=== PATIENT | female | born 1995 | race Caucasian/White ===

== ENCOUNTER 2016-11-17 15:04 | Emergency (ER) | payer OTHER ==
[~2016-11-17] VITALS: Ht 172.7 cm; Wt 95.3 kg
[~2016-11-17 15:04] MED LIST: ACET50TA; IBUP600T26 PO; MOTR200T44 PO; PRENTAB74 PO
[2016-11-17] MEDS ORDERED: NORCO, ANEXSIA 5/325MG TABLET (HYDROcodone/ACETAMINOPHEN) PO ONE (16:00)
[2016-11-17] MEDS ORDERED: ONDANSETRON 4 MG ORAL DISINTEGRATING TAB (S0181) PO ONE (16:00)
[2016-11-17 16:18] LABS: BASO % 0.3 % (0.0-1.0); EOS # 0.1 K/mm3 (0.0-0.50); EOS % 1.5 % (0.0-3.0); LARGE UNSTAINED CELL # 0.1 K/mm3 (0.0-0.4); LARGE UNSTAINED CELL % 1.2 % (0.0-4.0); LYMPH # 1.9 K/mm3 (1.5-6.5); LYMPH % 27.1 % (24.0-44.0); MEAN CORPUSCULAR HEMOGLOBIN 28.8 pg (27.0-33.0); MEAN CORPUSCULAR HGB CONC 32.9 g/dl (32.0-36.5); MEAN CORPUSCULAR VOLUME 87.4 fl (80.0-96.0); MONO # 0.3 K/mm3 (0.0-0.8); MONO % 3.9 % (0.0-5.0); NEUTROPHILS # 4.5 K/mm3 (1.8-7.7); PLATELET COUNT, AUTOMATED 255 k/mm3 (150-450); WHITE BLOOD COUNT 6.7 K/mm3 (4.0-10.0)
--- NOTE | 2016-11-17 16:38 | REP ---
KUB, TWO VIEWS: HISTORY: Left upper quadrant pain. Air is present in the small and large intestine. There are no air fluid levels or dilated loops of intestine. There is no pneumoperitoneum. There is spina bifida occulta of SI. IMPRESSION: Non-specific bowel gas pattern. Signed by Kevyn Way MD 11/17/2016 04:46 P
[2016-11-17 16:57] LABS: ALBUMIN 3.8 GM/DL (3.2-5.2); ALBUMIN/GLOBULIN RATIO 0.97 (1.00-1.93); ALKALINE PHOSPHATASE 93 U/L (45-117); ALT/SGPT 15 U/L (12-78); AMYLASE 70 U/L (25-115); ANION GAP 5 MEQ/L (8-16); AST/SGOT 8 U/L (15-37); BILIRUBIN,DIRECT < 0.1 MG/DL (0.0-0.2); BILIRUBIN,TOTAL 0.2 MG/DL (0.2-1.0); BLOOD UREA NITROGEN 11 MG/DL (7-18); CALCIUM LEVEL 8.6 MG/DL (8.5-10.1); CARBON DIOXIDE LEVEL 28 MEQ/L (21-32); CHLORIDE LEVEL 110 MEQ/L (98-107); CREATININE FOR GFR 0.56 MG/DL (0.55-1.02); GLOMERULAR FILTRATION RATE > 60.0 (>60); GLUCOSE, FASTING 87 MG/DL (70-105); POTASSIUM SERUM 3.9 MEQ/L (3.5-5.1); SODIUM LEVEL 143 MEQ/L (136-145); TOTAL PROTEIN 7.7 GM/DL (6.4-8.2)
[2016-11-17] MEDS ORDERED: CIPR500T89 PO (17:05)
[2016-11-17 17:23] VITALS: BP 107/67
== END 2016-11-17 17:25 | disposition home or self-care (01) ==
LOC: M ED 16:13
DX: N39.0 Urinary tract infection, site not specified (principal)

== ENCOUNTER → 2017-01-10 | Outpatient (REF) | payer OTHER ==
[~2017-01-10] MED LIST changes: +CIPR500T89 PO
[2017-01-10 18:32] LABS: MEAN CORPUSCULAR HEMOGLOBIN 29.7 pg (27.0-33.0); MEAN CORPUSCULAR HGB CONC 33.9 g/dl (32.0-36.5); MEAN CORPUSCULAR VOLUME 87.5 fl (80.0-96.0); RED CELL DISTRIBUTION WIDTH 15.2 % (11.5-14.5); WHITE BLOOD COUNT 6.5 K/mm3 (4.0-10.0)
[2017-01-10 18:45] LABS: HCG, SERUM QUANTITATIVE 72456 MIU/ML
== END ==
LOC: M LAB REF 16:41
PROVIDERS: ATTEND Obstetrics & Gynecology
DX: O36.80X0 Pregnancy with inconclusive fetal viability, not applicable or unspecified (principal)

== ENCOUNTER → 2017-02-10 | Outpatient (REF) | payer OTHER | LOC: M LAB REF 13:10 | PROVIDERS: ATTEND Obstetrics & Gynecology | DX: Z34.91 Encounter for supervision of normal pregnancy, unspecified, first trimester (principal) ==

== ENCOUNTER → 2017-06-02 | Outpatient (CLI) | payer OTHER ==
[~2017-06-02] MED LIST changes: +CIPR-249 PO; -CIPR500T89 PO
[2017-06-02 10:52] LABS: MEAN CORPUSCULAR HEMOGLOBIN 29.7 pg (27.0-33.0); MEAN CORPUSCULAR HGB CONC 32.2 g/dl (32.0-36.5); MEAN CORPUSCULAR VOLUME 92.4 fl (80.0-96.0); RED CELL DISTRIBUTION WIDTH 15.7 % (11.5-14.5); WHITE BLOOD COUNT 9.9 10^3/uL (4.0-10.0)
== END ==
LOC: M LAB 09:17
PROVIDERS: ATTEND Obstetrics & Gynecology
DX: Z34.82 Encounter for supervision of other normal pregnancy, second trimester (principal); Z3A.26 26 weeks gestation of pregnancy

== ENCOUNTER → 2017-07-26 | Outpatient (REF) | payer OTHER, MEDICAID | LOC: M LAB REF 13:29 | PROVIDERS: ATTEND Obstetrics & Gynecology | DX: Z34.83 Encounter for supervision of other normal pregnancy, third trimester (principal) ==

== ENCOUNTER 2017-08-29 12:08 | Inpatient (IN) | payer OTHER, MEDICAID ==
[2017-08-29] MEDS: LACTATED RINGER'S 1000 ML IV (13:19)
[2017-08-29 13:57] LABS: HEMATOCRIT 30.2 % (36.0-47.0); HEMOGLOBIN 9.7 g/dl (12.0-16.0); MEAN CORPUSCULAR HEMOGLOBIN 27.2 pg (27.0-33.0); MEAN CORPUSCULAR HGB CONC 32.1 g/dl (32.0-36.5); MEAN CORPUSCULAR VOLUME 84.8 fl (80.0-96.0); PLATELET COUNT, AUTOMATED 200 10^3/uL (150-450); RED BLOOD COUNT 3.56 10^6/uL (4.00-5.40); RED CELL DISTRIBUTION WIDTH 16.2 % (11.5-14.5); WHITE BLOOD COUNT 8.8 10^3/uL (4.0-10.0)
[2017-08-29] MEDS: OXYTOCIN DRIP 30 UNITS in APPROPRIATE DILUENT 1 EA IV ×2 (14:00→22:51)
[2017-08-29] MEDS: LR 1,000 ML IV ×2 (14:00→21:28)
[2017-08-29 14:16] LABS: AMPHETAMINES URINE REFLEX NEGATIVE (NEGATIVE); BARBITURATES URINE REFLEX NEGATIVE (NEGATIVE); BENZODIAZEPINES URINE REFLEX NEGATIVE (NEGATIVE); CANNABINOIDS URINE REFLEX NEGATIVE (NEGATIVE); COCAINE METABOLITE URINE REFLE NEGATIVE (NEGATIVE); METHADONE URINE REFLEX NEGATIVE (NEGATIVE); OPIATES URINE REFLEX NEGATIVE (NEGATIVE); PHENCYCLIDINE URINE REFLEX NEGATIVE (NEGATIVE)
[2017-08-29] MEDS: PROMETHAZINE INJ 25 MG/ML VIAL (J2550) IV (20:21)
[2017-08-29] MEDS: BUTORPHANOL 2 MG/ML INJ (J0595) IV (20:29)
[2017-08-29] MEDS ORDERED: RHOGAM 300 MCG (1500 IU) INJ (J2790) IM (23:00)
[2017-08-29] MEDS ORDERED: METHYLERGONOVINE MALEATE 0.2 MG TAB PO (23:00)
[2017-08-29] MEDS ORDERED: DIBUCAINE 1% OINTMENT 30GM TOP (23:00)
[2017-08-29] MEDS ORDERED: DOCUSATE SODIUM 100 MG CAP PO (23:00)
[2017-08-29] MEDS ORDERED: ANUSOL HC CREAM 30GM TOP (23:00)
[2017-08-29] MEDS ORDERED: MEASLES,MUMPS,RUBELLA VACCINE INJ (MMR-II) (90707) SC (23:00)
[2017-08-30] MEDS: ACETAMINOPHEN 500 MG TAB PO ×4 (00:35→20:49)
[2017-08-30] MEDS: IBUPROFEN 800 MG TAB PO ×3 (00:38→17:08)
[2017-08-30] MEDS: PRENATAL VITAMINS CHEWABLE TABLET PO (08:54)
[2017-08-31] MEDS: ACETAMINOPHEN 500 MG TAB PO (05:04)
[2017-08-31] MEDS: IBUPROFEN 800 MG TAB PO (05:04)
[2017-08-31] MEDS: PRENATAL VITAMINS CHEWABLE TABLET PO (08:34)
== END 2017-08-31 10:10 | disposition home or self-care (01) | DRG 560 ==
LOC: M LDI 12:08 → M OBS 08-30 00:59
PROVIDERS: Advanced Practice Midwife
PROC: 10E0XZZ Delivery of Products of Conception, External Approach (ICD-10-PCS; principal; 2017-08-29)
PROC: 3E033VJ Introduction of Other Hormone into Peripheral Vein, Percutaneous Approach (ICD-10-PCS; 2017-08-29)
DX: O48.0 Post-term pregnancy (principal); E66.9 Obesity, unspecified; Z37.0 Single live birth; Z3A.40 40 weeks gestation of pregnancy; F17.200 Nicotine dependence, unspecified, uncomplicated; Z88.2 Allergy status to sulfonamides; Z88.6 Allergy status to analgesic agent; O99.214 Obesity complicating childbirth; O99.334 Smoking (tobacco) complicating childbirth

== ENCOUNTER → 2018-04-17 | Outpatient (REF) | payer OTHER ==
[2018-04-17 20:20] LABS: APPEARANCE, URINE CLOUDY (CLEAR); BACTERIA, URINE AUTO 2+ (NEGATIVE); BILIRUBIN, URINE AUTO NEGATIVE (NEGATIVE); BLOOD, URINE BLOOD 3+ (NEGATIVE); COLOR, URINE YELLOW (YELLOW); GLUCOSE, URINE (UA) AUTO NEGATIVE (NEGATIVE); KETONE, URINE AUTO NEGATIVE (NEGATIVE); LEUKOCYTE ESTERASE, URINE AUTO 3+ (NEGATIVE); MUCUS, URINE SMALL (NEGATIVE); NITRITE, URINE AUTO NEGATIVE (NEGATIVE); PROTEIN, URINE AUTO 2+ mg/dL (NEGATIVE); RBC, URINE AUTO TNTC /HPF (0-3); SPECIFIC GRAVITY URINE AUTO 1.023 (1.002-1.035); SQUAMOUS EPITHELIAL CELL UR AU 8 /HPF (0-6); UROBILINOGEN, URINE AUTO 0.2 mg/dL (0.0-2.0); WBC, URINE AUTO TNTC /HPF (0-3)
== END ==
LOC: M LAB REF 17:01
DX: N39.0 Urinary tract infection, site not specified (principal)

== ENCOUNTER → 2018-09-28 | Outpatient (REF) | payer OTHER ==
[~2018-09-28] MED LIST changes: +IBUP-1114 PO; +MAPA500T2 PO; +PRENTAB9 PO; +RANI15TA PO
[2018-09-28 18:09] LABS: HEMOGLOBIN 11.5 g/dl (12.0-15.5); MEAN CORPUSCULAR HEMOGLOBIN 28.9 pg (27.0-33.0); MEAN CORPUSCULAR HGB CONC 32.9 g/dl (32.0-36.5); MEAN CORPUSCULAR VOLUME 87.9 fl (80.0-96.0); PLATELET COUNT, AUTOMATED 257 10^3/uL (150-450); RED BLOOD COUNT 3.98 10^6/uL (4.00-5.40); WHITE BLOOD COUNT 6.3 10^3/uL (4.0-10.0)
[2018-09-29 14:10] LABS: HIV 1&2 SCREEN CENTAUR NEGATIVE (NEGATIVE); RUBELLA IgG QUALITATIVE IMMUNE (IMMUNE)
== END ==
LOC: M LAB REF 16:34
PROVIDERS: ATTEND Obstetrics & Gynecology
DX: Z32.01 Encounter for pregnancy test, result positive (principal); O36.80X0 Pregnancy with inconclusive fetal viability, not applicable or unspecified; Z3A.00 Weeks of gestation of pregnancy not specified

== ENCOUNTER → 2019-02-07 | Outpatient (CLI) | payer OTHER ==
[~2019-02-07] MED LIST changes: -ACET50TA; +MAPA500T17
[2019-02-07 12:27] LABS: HEMATOCRIT 31.7 % (36.0-47.0); HEMOGLOBIN 10.5 g/dl (12.0-15.5); MEAN CORPUSCULAR HEMOGLOBIN 31.6 pg (27.0-33.0); MEAN CORPUSCULAR HGB CONC 33.1 g/dl (32.0-36.5); MEAN CORPUSCULAR VOLUME 95.5 fl (80.0-96.0); PLATELET COUNT, AUTOMATED 148 10^3/uL (150-450); RED BLOOD COUNT 3.32 10^6/uL (4.00-5.40); WHITE BLOOD COUNT 7.8 10^3/uL (4.0-10.0)
== END ==
LOC: M LAB 10:11
PROVIDERS: ATTEND Obstetrics & Gynecology
DX: O30.042 Twin pregnancy, dichorionic/diamniotic, second trimester (principal); Z3A.00 Weeks of gestation of pregnancy not specified

== ENCOUNTER → 2019-03-23 | Outpatient (CLI) | payer OTHER ==
--- NOTE | 2019-03-23 16:56 | REP ---
Clinical: Twin gestation. Abnormal heart rates Comparison: None . Findings: Examination demonstrates diamniotic dichorionic twin gestation. Cervix measures 3.2 cm in length and appears closed. Concordant growth is noted. TWIN A: Twin A identified in cephalic presentation along the maternal right side. Placenta is noted posterior and grade II without evidence for placenta previa or abruption. motion is appreciated. Amniotic fluid volume is normal and the deepest pocket measures 5.2 cm. FHR equals 135 beats per minute. Biophysical profile score: 8/8 Umbilical cord SD ratio: 3.59 ------- TWIN B: Twin B identified in breech presentation along the maternal left side. Placenta is noted posterior and grade II without evidence for placenta previa or abruption. motion is appreciated. Amniotic fluid volume is normal and the deepest pocket measures 3.1 cm. FHR equals 147 beats per minute. Biophysical profile score: 8/8 Umbilical cord SD ratio: 3.11 Impression: Diamniotic dichorionic twin gestation demonstrating normal amniotic fluid volume and biophysical profile scores. Electronically Signed by Sarkis Webb MD 03/23/2019 04:48 P
== END ==
LOC: M RAD 15:08
PROVIDERS: ATTEND Nurse Practitioner Women's Health
DX: O30.043 Twin pregnancy, dichorionic/diamniotic, third trimester (principal); O36.8330 Maternal care for abnormalities of the fetal heart rate or rhythm, third trimester, not applicable or unspecified; Z3A.00 Weeks of gestation of pregnancy not specified

== ENCOUNTER → 2019-03-27 | Outpatient (REF) | payer OTHER | LOC: M LAB REF 13:36 | PROVIDERS: ATTEND Nurse Practitioner Women's Health | DX: O30.043 Twin pregnancy, dichorionic/diamniotic, third trimester (principal); R30.0 Dysuria ==

== ENCOUNTER → 2019-04-05 | Outpatient (REF) | payer OTHER | LOC: M LAB REF 16:22 | PROVIDERS: ATTEND Obstetrics & Gynecology | DX: O09.893 Supervision of other high risk pregnancies, third trimester (principal); Z3A.00 Weeks of gestation of pregnancy not specified ==

== ENCOUNTER 2019-04-27 07:03 | Inpatient (IN) | payer OTHER ==
[2019-04-27] VITALS (7 sets, daily range): BP systolic 102–118; BP diastolic 52–71
[~2019-04-27] VITALS: Ht 172.7 cm; Wt 97.7 kg
[2019-04-27] MEDS ORDERED: LR 1,000 ML IV SCH ×2 (07:45→17:15)
[2019-04-27] MEDS ORDERED: BICITRA 30ML SOLN UDC PO ONE (07:45)
[2019-04-27] MEDS ORDERED: LACTATED RINGER'S 1000 ML IV STA (07:45)
[2019-04-27 08:23] LABS: HEMATOCRIT 35.7 % (36.0-47.0); HEMOGLOBIN 11.9 g/dl (12.0-15.5); MEAN CORPUSCULAR HEMOGLOBIN 30.9 pg (27.0-33.0); MEAN CORPUSCULAR HGB CONC 33.3 g/dl (32.0-36.5); MEAN CORPUSCULAR VOLUME 92.7 fl (80.0-96.0); PLATELET COUNT, AUTOMATED 149 10^3/uL (150-450); RED BLOOD COUNT 3.85 10^6/uL (4.00-5.40); WHITE BLOOD COUNT 8.4 10^3/uL (4.0-10.0)
[2019-04-27] MEDS ORDERED: MORPHINE PRES-FREE INJ 10 MG/10 ML VIAL (J2274) As Ordered ONE (10:25)
[2019-04-27] MEDS ORDERED: OXYTOCIN INJ 10 UNITS/ML VIAL (J2590) As Ordered ONE (10:25)
[2019-04-27] MEDS ORDERED: dexameTHASONE 4 MG/ML 1ML VIAL (J1100) As Ordered ONE (10:25)
[2019-04-27] MEDS ORDERED: PHENYLephrine HCL 500 MCG/5 ML (100MCG/ML) SYRINGE (J2370) As Ordered ONE ×2 (10:25→10:28)
[2019-04-27] MEDS ORDERED: KETOROLAC 60 MG/2 ML VIAL (J1885) As Ordered ONE (10:25)
[2019-04-27] MEDS ORDERED: ONDANSETRON 4MG/2ML VIAL (J2405) As Ordered ONE (10:25)
[2019-04-27] MEDS ORDERED: ePHEDrine SULFATE 25 MG/5 ML(5MG/ML) SYRINGE As Ordered ONE (10:25)
[2019-04-27] MEDS ORDERED: OXYTOCIN DRIP 30 UNITS in APPROPRIATE DILUENT 1 EA IV SCH (11:01)
[2019-04-27 11:02] LABS: CORD GAS ABE A 2.2; CORD GAS ABE V 1.4; CORD GAS HCO3 A 31.6 MEQ/L; CORD GAS HCO3 V 27.8 MEQ/L; CORD GAS O2 SAT A 46.3 %; CORD GAS O2 SAT V 82.1 %; CORD GAS PCO2 A 67.9 mmHg; CORD GAS PCO2 V 49.6 mmHg; CORD GAS PH A 7.285 UNITS; CORD GAS PH V 7.367 UNITS; CORD GAS PO2 A 19.3 mmHg; CORD GAS PO2 V 34.3 mmHg; CORD GAS SBC A 24.9 MEQ/L; CORD GAS SBC V 25.2 MEQ/L; CORD GAS TCO2 A 33.6 MEQ/L; CORD GAS TCO2 V 29.4 MEQ/L
[2019-04-27 11:05] LABS: CORD GAS ABE A 0.2; CORD GAS ABE V 0.4; CORD GAS HCO3 A 28.9 MEQ/L; CORD GAS HCO3 V 26.1 MEQ/L; CORD GAS O2 SAT A 35.6 %; CORD GAS O2 SAT V 81.1 %; CORD GAS PCO2 A 62.3 mmHg; CORD GAS PCO2 V 45.4 mmHg; CORD GAS PH A 7.285 UNITS; CORD GAS PH V 7.377 UNITS; CORD GAS PO2 A 14.5 mmHg; CORD GAS PO2 V 32.9 mmHg; CORD GAS SBC A 22.8 MEQ/L; CORD GAS SBC V 24.3 MEQ/L; CORD GAS TCO2 A 30.9 MEQ/L; CORD GAS TCO2 V 27.5 MEQ/L
[2019-04-27] MEDS ORDERED: RHOGAM 300 MCG (1500 IU) INJ (J2790) IM SCH (11:15)
[2019-04-27] MEDS ORDERED: MOM 30ML SUSPENSION UDC PO PRN (11:15)
[2019-04-27] MEDS ORDERED: MEASLES,MUMPS,RUBELLA VACCINE INJ (MMR-II) (90707) SC SCH (11:15)
[2019-04-27] MEDS ORDERED: ACETAMINOPHEN 650 MG SUPP PR PRN (11:15)
[2019-04-27] MEDS ORDERED: ONDANSETRON 4MG/2ML VIAL (J2405) IV PRN ×2 (11:30→14:00)
[2019-04-27] MEDS ORDERED: NALBUPHINE HCL 10 MG/ML AMP (J2300) IV PRN ×2 (11:30→14:00)
[2019-04-27] MEDS ORDERED: fentaNYL 100 MCG/2 ML INJECTION (J3010) As Ordered ONE (12:03)
[2019-04-27] MEDS: fentaNYL 100 MCG/2 ML INJECTION (J3010) IV PRN ×2 (12:14→12:27)
[2019-04-27] MEDS ORDERED: OXYTOCIN 30 UNITS IN 0.9% NaCl 500ML IV BAG (J2590) As Ordered ONE (12:21)
[2019-04-27] MEDS: PERCOCET 5MG/325MG TAB PO PRN ×3 (13:38→22:09)
[2019-04-27] MEDS: PRENATAL VITAMINS CHEWABLE TABLET PO SCH (13:38)
[2019-04-27] MEDS ORDERED: diphenhydrAMINE INJ 50MG/ML VIAL (J1200) IV PRN (14:00)
[2019-04-27] MEDS ORDERED: NALOXONE INJ 0.4 MG/1 ML VIAL (J2310) IV PRN ×2 (14:00)
[2019-04-27] MEDS ORDERED: METOCLOPRAMIDE INJ 10MG/2ML VIAL (J2765) IV PRN (14:00)
[2019-04-27] MEDS: NICOTINE 21MG/24HR 1 EA TRANSDERMAL TD SCH (20:23)
--- NOTE | 2019-04-27 21:57 | RO ---
DATE OF PROCEDURE: 04/27/2019 Zakiya is a 23-year-old female 5, para 5 4-0-0-4 who has a diamniotic-dichorionic twin gestation at 38-3/7 weeks gestation, vertex breech. Patient is requesting delivery via section. She also wanted tubal ligation. PREOPERATIVE DIAGNOSIS 1. Twin gestation at 38-4/7 weeks gestation, Di-Di. 2. Vertex breech requesting delivery via primary section. 3. Desires permanent tubal sterilization. POSTOPERATIVE DIAGNOSIS 1. Twin gestation at 38-4/7 weeks gestation, Di-Di. 2. Vertex breech requesting delivery via primary section. 3. Desires permanent tubal sterilization. PROCEDURE 1. Primary low transverse section. 2. Bilateral tubal ligation using Filshie clip. SURGEON: Carlton Lozada MD RAND MAKER: ANESTHESIA: Spinal. COMPLICATIONS: None. ESTIMATED BLOOD LOSS: 800 mL. FINDINGS: Live female infant twin A delivered in vertex position. nine and nine. weight 6 pounds 2 ounces. Twin B had an internal cephalic version and delivered vertex. nine and nine. weight 6 pounds 3 ounces. Placenta delivered spontaneously intact. Three-vessel cord. Cord blood and cord gas were sent. Normal-appearing tubes and ovaries. DESCRIPTION OF PROCEDURE After obtaining informed consent, the patient was taken to the operating room where spinal anesthetic was found to be adequate. She was then draped and prepped in usual sterile fashion in the supine position. At this point, a Pfannenstiel incision was made. This was carried down to fascia. Fascia was incised in midline fashion and carried through laterally. Superior aspect of the fascia was then grasped with Roz clamps, tented off and dissected off the rectus muscles sharply. The inferior aspect was dissected off in a similar fashion. Rectus muscles midline fashion. Perineum identified. Peritoneal cavity entered bluntly. Superior and inferior dissection of peritoneum was then done with good visualization of the bladder. At this point a Mobius skin retractor was placed, a low-transverse uterine incision was made. Infant was delivered in atraumatic fashion after rupturing the amniotic sac. Then we then turned our attention to twin B which was found to be with an arm presentation, unable to deliver the baby in that fashion. We then did an internal cephalic version and the twin was then delivered in atraumatic fashion after rupturing the bag. Cord blood and cord gas were sent. Placenta removed manually. Uterus was cleared of all clot and debris and the uterine incision was then repaired in two separate layers of #0 Vicryl sutures. Attention turned to the fallopian tube which was identified. The fimbriated end identified and a Filshie clip was then applied approximately 2 cm away from the cornual area in each tube. Good hemostasis noted. All the instruments were removed. Pelvis copiously irrigated with normal saline and suctioned out. Attention turned to the peritoneum which was closed in a running fashion using #2-0 Vicryl suture. Fascia closed in two separate segment of #0 Vicryl sutures and the skin was closed in a subcuticular fashion using #3-0 Vicryl on a Mark. Steri-Strips placed. The patient tolerated procedure well. She was then transferred to recovery room in stable condition.
[2019-04-27] MEDS: DOCUSATE SODIUM 100 MG CAP PO SCH (22:08)
[2019-04-27] MEDS: IBUPROFEN 800 MG TAB PO SCH (22:09)
[2019-04-28] MEDS: PERCOCET 5MG/325MG TAB PO PRN ×5 (01:53→20:25)
[2019-04-28 02:00] VITALS: BP 108/51
[2019-04-28 06:00] VITALS: BP 108/58
[2019-04-28] MEDS: IBUPROFEN 800 MG TAB PO SCH ×3 (06:08→22:44)
--- NOTE | 2019-04-28 06:23 | IPNPDOC ---
Text Note Date of Service The patient was seen on 04/28/19. NOTE Postop Day 1 s/p primary LTCS; uncomplicated for Di-Di twins S: pain well controlled, lochia and bleeding decreasing, voiding spontaneously, ambulating without assistance, tolerating regular diet. Breast feeding. O: vitals stable Heart: RRR, no murmurs Lungs: CTA bilaterally Abd: Fundus firm @ U-1 Ext: no edema, nontender, negative Mustapha's bilaterally A/P: 23 yo G5 now P6. day 1 s/p primary LTCS. Hemodynamically stable, afebrile, adequate pain control. Recovering well. -Routine postoperative care and advancement. -Anticipate discharge tomorrow or Tuesday VS,Fishbone, I+O VS, Fishbone, I+O Laboratory Tests 04/27/19 08:03 Red Blood Count 3.85 L, Mean Corpuscular Volume 92.7, Mean Corpuscular Hemoglobin 30.9, Mean Corpuscular Hemoglobin Concent 33.3, Red Cell Distribution Width 14.7 H Vital Signs Date Time Temp Pulse Resp B/P (MAP) Pulse Ox O2 Delivery O2 Flow Rate FiO2 04/28/19 06:00 98.5 81 18 108/58 (75 93 I&O- Last 24 Hours up to 6 AM 04/28/19 06:00 Intake Total 1660 ml Output Total 2400 ml Balance -740 ml GME ATTESTATION GME ATTESTATION My faculty preceptor for this patient encounter was physically present during the encounter and was fully available. All aspects of the patient interview, examination, medical decision making process, and medical care plan development were reviewed and approved by the faculty preceptor. The faculty preceptor is aware and concurs with the plan as stated in the body of this note and will attest to such by his/her cosignature. XIMENA WILHELM DO Apr 28, 2019 06:23
[2019-04-28 07:11] LABS: HEMATOCRIT 26.2 % (36.0-47.0); MEAN CORPUSCULAR HEMOGLOBIN 30.2 pg (27.0-33.0); MEAN CORPUSCULAR HGB CONC 32.1 g/dl (32.0-36.5); MEAN CORPUSCULAR VOLUME 94.2 fl (80.0-96.0); PLATELET COUNT, AUTOMATED 152 10^3/uL (150-450); RED BLOOD COUNT 2.78 10^6/uL (4.00-5.40); WHITE BLOOD COUNT 11.7 10^3/uL (4.0-10.0)
[2019-04-28 07:15] LABS: HEMOGLOBIN 8.4 g/dl (12.0-15.5)
[2019-04-28] MEDS: DOCUSATE SODIUM 100 MG CAP PO SCH ×2 (09:56→20:24)
[2019-04-28] MEDS: PRENATAL VITAMINS CHEWABLE TABLET PO SCH (09:56)
[2019-04-28 10:00] VITALS: BP 102/54
[2019-04-28] MEDS: NICOTINE 21MG/24HR 1 EA TRANSDERMAL TD SCH (12:01)
[2019-04-28 14:00] VITALS: BP 115/59
[2019-04-28 18:00] VITALS: BP 118/62
[2019-04-28 22:07] VITALS: BP 116/60
[2019-04-29] MEDS: PERCOCET 5MG/325MG TAB PO PRN ×3 (01:11→09:12)
[2019-04-29 02:03] VITALS: BP 121/67
[2019-04-29 06:18] VITALS: BP 112/59
[2019-04-29] MEDS ORDERED: IBUP80TA PO (06:40)
[2019-04-29] MEDS ORDERED: PERCOCET PO (06:40)
[2019-04-29] MEDS: IBUPROFEN 800 MG TAB PO SCH (06:45)
[2019-04-29] MEDS: PRENATAL VITAMINS CHEWABLE TABLET PO SCH (09:11)
[2019-04-29] MEDS: DOCUSATE SODIUM 100 MG CAP PO SCH (09:12)
[2019-04-29 10:00] VITALS: BP 105/55
--- NOTE | 2019-04-29 13:51 | DSES ---
DATE OF ADMISSION: 04/27/2019 DATE OF DISCHARGE: 04/29/2019 DISCHARGE DIAGNOSES: 1. Twin gestation with primary section. 2. Satisfied parity with undesired fertility. DISCHARGE CONDITION: Stable. PROCEDURES PERFORMED WHILE IN THE HOSPITAL: 1. Primary lower transverse section. 2. Bilateral tubal ligation using Filshie clips. HISTORY AND HOSPITAL COURSE: Ms. Rome is a 23-year-old 5, para 4 who presented with diamniotic dichorionic twin gestation at 38 weeks and 3 days gestation. Twin A was vertex, twin B breech. This was a scheduled section, which was uncomplicated and productive of twin gestation, twin A is 6 pounds 2 ounces, twin B 6 ounces 3 ounces, both female. Estimated blood loss at the time of surgery was 800 mL. Ms. Rome did well postoperatively and by postoperative day #2 had met all discharge criteria and was discharged home in stable condition. PHYSICAL EXAMINATION: On date of discharge: Vital signs stable. She is afebrile. GENERAL APPEARANCE: Well appearing, no acute distress. Abdomen: Soft and appropriately tender. Fundus firm below umbilicus. Incision was dry and intact, well approximated with Steri-Strips and not erythremic. Extremities: Negative for calf tenderness. DISCHARGE MEDICATIONS: - Ibuprofen - Percocet DISCHARGE INSTRUCTIONS: 1. She was instructed to follow up with her Dr. Lozada in 2 weeks for incision check. 2. Report severe pain, heavy vaginal bleeding, fever or incisional issues. 3. To remain on pelvic rest.
== END 2019-04-29 11:05 | disposition home or self-care (01) | DRG 540 ==
LOC: M LDI 07:03 → M OBS 13:20
PROVIDERS: ADMIT Obstetrics & Gynecology; ATTEND Obstetrics & Gynecology
PROC: 0UL70ZZ Occlusion of Bilateral Fallopian Tubes, Open Approach (ICD-10-PCS; 2019-04-27)
PROC: 10D00Z1 Extraction of Products of Conception, Low, Open Approach (ICD-10-PCS; principal; 2019-04-27 09:30)
DX: O32.1XX2 Maternal care for breech presentation, fetus 2 (principal); Z3A.38 38 weeks gestation of pregnancy; Z37.2 Twins, both liveborn; O30.043 Twin pregnancy, dichorionic/diamniotic, third trimester; Z30.2 Encounter for sterilization

== ENCOUNTER → 2022-01-25 | Outpatient (CLI) | payer MEDICAID ==
[~2022-01-25] MED LIST changes: +IBUP80TA PO; +PERCOCET PO
== END ==
LOC: M OUTALCOH 08:09
PROVIDERS: ATTEND Psychiatry & Neurology Psychiatry
DX: Z03.89 Encounter for observation for other suspected diseases and conditions ruled out (principal)

== ENCOUNTER 2022-02-08 11:00 | Outpatient (RCR) | payer MEDICAID | END 2022-02-18 | LOC: M OUTALCOH 11:00 | PROVIDERS: ATTEND Psychiatry & Neurology Psychiatry | DX: F15.10 Other stimulant abuse, uncomplicated (principal); F12.10 Cannabis abuse, uncomplicated; Z72.0 Tobacco use ==

== ENCOUNTER 2022-03-19 10:00 | Outpatient (RCR) | payer MEDICAID | END 2022-03-21 | LOC: M OUTALCOH 10:00 | PROVIDERS: ATTEND Psychiatry & Neurology Psychiatry | DX: F15.10 Other stimulant abuse, uncomplicated (principal); F12.10 Cannabis abuse, uncomplicated; Z72.0 Tobacco use ==

== ENCOUNTER 2022-04-15 09:30 | Outpatient (RCR) | payer MEDICAID | END 2022-04-21 | LOC: M OUTALCOH 09:30 | PROVIDERS: ATTEND Psychiatry & Neurology Psychiatry | DX: F15.10 Other stimulant abuse, uncomplicated (principal); F12.10 Cannabis abuse, uncomplicated; Z72.0 Tobacco use ==

== ENCOUNTER 2022-05-20 09:00 | Outpatient (RCR) | payer MEDICAID | END 2022-05-21 | LOC: M OUTALCOH 09:00 | PROVIDERS: ATTEND Psychiatry & Neurology Psychiatry | DX: F15.10 Other stimulant abuse, uncomplicated (principal); F12.10 Cannabis abuse, uncomplicated; Z72.0 Tobacco use ==

== ENCOUNTER 2022-06-14 15:57 | Outpatient (RCR) | payer MEDICAID | END 2022-06-21 | LOC: M OUTALCOH 15:57 | PROVIDERS: ATTEND Psychiatry & Neurology Psychiatry | DX: F15.10 Other stimulant abuse, uncomplicated (principal); F12.10 Cannabis abuse, uncomplicated; Z72.0 Tobacco use ==

== ENCOUNTER 2022-07-01 13:00 | Outpatient (RCR) | payer MEDICAID | END 2022-07-21 | LOC: M OUTALCOH 13:00 | PROVIDERS: ATTEND Psychiatry & Neurology Psychiatry | DX: F15.10 Other stimulant abuse, uncomplicated (principal); F12.10 Cannabis abuse, uncomplicated; Z72.0 Tobacco use ==

== ENCOUNTER 2022-08-19 09:28 | Outpatient (RCR) | payer MEDICAID | END 2022-08-21 | LOC: M OUTALCOH 09:28 | PROVIDERS: ATTEND Psychiatry & Neurology Psychiatry | DX: F15.10 Other stimulant abuse, uncomplicated (principal); F12.10 Cannabis abuse, uncomplicated; Z72.0 Tobacco use ==

== ENCOUNTER → 2024-08-29 | Outpatient (CLI) | payer MEDICAID ==
[2024-08-29 12:19] LABS: HEMATOCRIT 32.5 % (36.0-47.0); HEMOGLOBIN 9.8 g/dl (12.0-15.5); MEAN CORPUSCULAR HEMOGLOBIN 26.8 pg (27.0-33.0); MEAN CORPUSCULAR HGB CONC 30.2 g/dl (32.0-36.5); MEAN CORPUSCULAR VOLUME 88.8 fl (80.0-96.0); PLATELET COUNT, AUTOMATED 270 10^3/uL (150-450); RED BLOOD COUNT 3.66 10^6/uL (4.00-5.40); WHITE BLOOD COUNT 5.7 10^3/uL (4.0-10.0)
[2024-08-29 12:29] LABS: ALBUMIN 3.6 G/DL (3.2-5.2); ALKALINE PHOSPHATASE 72 U/L (35-104); ALT/SGPT 10 U/L (7.0-40); AST/SGOT 9 U/L (<34); BILIRUBIN,TOTAL 0.2 MG/DL (0.3-1.2); BLOOD UREA NITROGEN 12 MG/DL (9-23); CALCIUM LEVEL 9.4 MG/DL (8.5-10.1); CARBON DIOXIDE LEVEL 33 MMOL/L (20-31); CHLORIDE LEVEL 106 MMOL/L (98-107); CHOLESTEROL LEVEL 146 MG/DL (<200); CHOLESTEROL RISK RATIO 2.81 (<5); CREATININE FOR GFR 0.59 MG/DL (0.55-1.30); GLOMERULAR FILTRATION RATE > 60.0 (>60); GLUCOSE, FASTING 100 MG/DL (60-100); HDL CHOLESTEROL 51.8 MG/DL (>40); LDL CHOLESTEROL 82.2 MG/DL (<100); NON-HDL-C 94.2 MG/DL; POTASSIUM SERUM 4.2 MMOL/L (3.5-5.1); SODIUM LEVEL 140 MMOL/L (136-145); TOTAL PROTEIN 6.7 G/DL (5.7-8.2); TRIGLYCERIDES LEVEL 60 MG/DL (<150)
== END ==
LOC: M LAB 11:27
PROVIDERS: ATTEND Family Medicine
DX: D64.9 Anemia, unspecified (principal); E78.00 Pure hypercholesterolemia, unspecified